=== PATIENT | female | born 1980 | race American Indian/Alaskan Native ===

== ENCOUNTER 2017-11-07 07:54 | Emergency (ER) | payer MEDICAID ==
[2017-11-07 08:06] VITALS: PULSE 81; RESP 18
--- NOTE | 2017-11-07 08:31 | ED PDOC ---
Arrival/HPI - General Historian: Patient - History of Present Illness Time/Duration: 4-6 hours Symptom Onset: Sudden Symptom Course: Worsening Severity Level: 8, Moderate <Alla Aggarwal - Last Filed: 11/07/17 10:10> <Andrea Alston - Last Filed: 11/07/17 11:49> - General Chief Complaint: Lower Extremity Problem/Injury Time Seen by Provider: 11/07/17 08:08 - History of Present Illness Narrative History of Present Illness (Text): 11/07/17 08:28 Patient is a 37 year old female with no past medical history who presents the emergency department s/p right ankle injury. She states that last night at approximately 11pm she fell on her stairs. She is unsure which way she landed on her foot. She is unable to bear weight. Pain scale in 8/10. Denies any numbness or tingling. (Alla Aggarwal) Past Medical History - Provider Review Nursing Documentation Reviewed: Yes - Past History Past History: No Previous - Past Medical History Past Medical History: No Previous - Cardiac Hx Cardiac Disorders: No - Pulmonary Hx Respiratory Disorders: No - Neurological Hx Neurological Disorder: No - HEENT Hx HEENT Disorder: No - Renal Hx Renal Disorder: No - Endocrine/Metabolic Hx Endocrine Disorders: No - Hematological/Oncological Hx Blood Disorders: No - Integumentary Hx Dermatological Disorder: No - Psychiatric Hx Substance Use: No <Alla Aggarwal - Last Filed: 11/07/17 10:10> Family/Social History - Physician Review Nursing Documentation Reviewed: Yes Family/Social History: Neoplasm/Cancer (Breast) Smoking Status: Light Smoker < 10 Cigarettes Daily Hx Alcohol Use: No Hx Substance Use: No Hx Substance Use Treatment: No <Alla Aggarwal - Last Filed: 11/07/17 10:10> Allergies/Home Meds <Alla Aggarwal - Last Filed: 11/07/17 10:10> <Andrea Alston - Last Filed: 11/07/17 11:49> Allergies/Adverse Reactions: Allergies No Known Allergies Allergy (Verified 11/07/17 08:05) Review of Systems - Physician Review All systems were reviewed & negative as marked: Yes - Review of Systems Constitutional: Normal. absent: Fatigue, Fevers Eyes: Normal ENT: Normal. absent: Hearing Changes Respiratory: Normal. absent: SOB, Cough Cardiovascular: Normal. absent: Chest Pain, Palpitations Gastrointestinal: Normal. absent: Abdominal Pain, Constipation, Diarrhea, Nausea, Vomiting Genitourinary Female: Normal. absent: Dysuria Musculoskeletal: Joint Swelling Skin: Normal. absent: Rash Neurological: Normal. absent: Headache, Dizziness <Alla Aggarwal - Last Filed: 11/07/17 10:10> Physical Exam Vital Signs Reviewed: Yes Temperature: Afebrile Blood Pressure: Normal Pulse: Regular Respiratory Rate: Normal Appearance: Positive for: Well-Appearing, Comfortable Pain Distress: Moderate Mental Status: Positive for: Alert and Oriented X 3 - Systems Exam Head: Present: Atraumatic, Normocephalic Pupils: Present: PERRL Extroacular Muscles: Present: EOMI Conjunctiva: Present: Normal Mouth: Present: Moist Mucous Membranes Neck: Present: Normal Range of Motion Respiratory/Chest: Present: Clear to Auscultation, Good Air Exchange. No: Respiratory Distress Cardiovascular: Present: Regular Rate and Rhythm Abdomen: Present: Normal Bowel Sounds Upper Extremity: Present: Normal Inspection Lower Extremity: Present: Edema, NORMAL PULSES, Tenderness, Temperature Abnormalties, Neurovascularly Intact, Other (Moderate amount of edema of the lateral side of right foot, tenderness of medial/lateral malleolus, decreased ROM due to pain). No: Normal Inspection, Normal ROM, Deformity Neurological: Present: CN II-XII Intact Skin: Present: Warm, Dry, Normal Color, Abrasion (right knee abrasion) Psychiatric: Present: Alert, Oriented x 3 <Alla Aggarwal - Last Filed: 11/07/17 10:10> <Andrea Alston - Last Filed: 11/07/17 11:49> Vital Signs Temp Pulse Resp BP Pulse Ox 11/07/17 10:32 98.0 F 81 18 120/64 97 11/07/17 08:03 98.3 F 81 18 118/58 L 96 Medical Decision Making - RAD Interpretation Sand Tester: ED Physician, Radiologist <Alla Aggarwal - Last Filed: 11/07/17 10:10> - RAD Interpretation Sand Tester: Radiologist <Andrea Alston - Last Filed: 11/07/17 11:49> ED Course and Treatment: 11/07/17 08:35 Patient is a 37 year old female with no significant past medical history who presents to the ED s/p ankle injury last night. Patient is unable to bear weight. Right foot and right ankle x rays ordered. Toradol 60mg IM for pain control. 11/07/17 10:05 X rays reviewed. Patient with 5th metatarsal fracture. Ortho shoe and crutches provided to the patient. Patient aware to call Dr Tavares's office tomorrow for an appointment. (Alla Aggarwal) 11/07/17 In agreement with resident note, which includes further HPI details. Patient was seen and evaluated with resident, came up with plan and treatment together. 37 year old F p/w foot/ankle pain, denies head injury. On exam, tenderness over lateral foot. XR positive for 5th met[address] fracture. Dr. Pike called, will see patient tomorrow in his office. (Andrea Alston) - RAD Interpretation Narrative RAD Interpretations (Text): 11/07/17 10:06 Foot x ray: 5th metatarsal fracture Knee x ray: unremarkable Ankle x ray: unremarkable (Alla Aggarwal) Radiology Orders: 11/07/17 08:26 ANKLE RIGHT 3 VIEWS ROUTINE [RAD] Stat FOOT RIGHT 3 VIEWS ROUTINE [RAD] Stat 11/07/17 08:41 KNEE W PATELLA RIGHT 3 VIEW [RAD] Stat - Medication Orders Current Medication Orders: Discontinued Medications Ketorolac Tromethamine (Toradol) 60 mg IM STAT STA Stop: 11/07/17 08:29 Last Admin: 11/07/17 08:39 Dose: 60 mg MAR Pain Assessment Document 11/07/17 08:39 [email or web address] (Rec: 11/07/17 08:40 [id number]) Pain Reassessment Is this a pain reassessment? No Sleep Is patient sleeping during reassessment? No Presence of Pain Presence of Pain Yes Pain Scale Used Pain Scale Used Numeric Location Left, Right or Bilateral Right Pain Location Body Site Knee Foot Description Description Constant Intensity of Pain at present 7 Pain Behavior Facial Grimacing Aggravating Factors Changing Position Alleviating Factors/Management Medication Techniques Alleviating Factors Medication IM Administration Charges Document 11/07/17 08:39 [email or web address] (Rec: 11/07/17 08:40 [id number]) Injection Site MAR Injection Site Right Gluteus Mc Charges for Administration # of IM Administrations 1 <Alla Aggarwal - Last Filed: 11/07/17 10:10> - PA / SEAM STEAMER / Resident Statement / has reviewed & agrees with the documentation as recorded. MD/ has examined the patient and agrees with the treatment plan. - Scribe Statement The provider has reviewed the documentation as recorded by the Scribe <Andrea Alston - Last Filed: 11/07/17 11:49> - Scribe Statement Jaimie Wright Provider Scribe Attestation: All medical record entries made by the Scribe were at my direction and personally dictated by me. I have reviewed the chart and agree that the record accurately reflects my personal performance of the history, physical exam, medical decision making, and the department course for this patient. I have also personally directed, reviewed, and agree with the discharge instructions and disposition. (Andrea Alston) Disposition/Present on Arrival - Present on Arrival Any Indicators Present on Arrival: No History of DVT/PE: No History of Uncontrolled Diabetes: No Urinary Catheter: No History of Decub. Ulcer: No History Surgical Site Infection Following: None - Disposition Have Diagnosis and Disposition been Completed?: Yes Disposition Time: 09:58 Patient Plan: Discharge <Alla Aggarwal - Last Filed: 11/07/17 10:10> <Andrea Alston - Last Filed: 11/07/17 11:49> - Disposition Diagnosis: Fracture of 5th metatarsal Disposition: HOME/ ROUTINE Condition: GOOD Additional Instructions: Take pain medications as needed Ice and elevate your foot Please wear ortho shoe, bear weight as tolerated Call Dr Dougherty's office for appointment tomorrow Prescriptions: Ibuprofen [Motrin] 600 mg PO Q8H PRN #20 tab PRN Reason: Pain, Moderate (4-7) oxyCODONE/Acetaminophen [Percocet 5/325 mg Tab] 1 tab PO Q6 #10 tab Referrals: Neo Tavares DO [Staff Provider] - Follow up with primary Forms: [facility] (Turkish), WORK NOTE
[2017-11-07 10:33] VITALS: BP 120/64; TEMP 98; O2SAT 97
--- NOTE | 2017-11-07 10:52 | RAD ---
Date of service: 11/07/2017 PROCEDURE: Right Ankle Radiographs. HISTORY: s/p fall COMPARISON: None FINDINGS: BONES: Transverse fracture base of right 5th metatarsal. JOINTS: Normal. No osteoarthritis. Ankle mortise maintained. Talar dome intact SOFT TISSUES: Normal. OTHER FINDINGS: None. IMPRESSION: Acute 5th metatarsal fracture.
--- NOTE | 2017-11-07 10:54 | RAD ---
Date of service: 11/07/2017 PROCEDURE: Right Knee Radiographs. HISTORY: s/p fall COMPARISON: None. FINDINGS: BONES: Normal. No fracture. JOINTS: Normal. No osteoarthritis. JOINT EFFUSION: None. OTHER FINDINGS: None. IMPRESSION: Normal radiographs of the right knee.
--- NOTE | 2017-11-07 10:55 | RAD ---
Date of service: 11/07/2017 PROCEDURE: Right Foot Radiographs. HISTORY: s/p fall COMPARISON: None. FINDINGS: BONES: Acute transverse fracture base of right 5th metatarsal. JOINTS: Normal. SOFT TISSUES: Normal. OTHER FINDINGS: None. IMPRESSION: 5th metatarsal fracture/acute. Concordant results with the preliminary interpretation rendered by the emergency department physician procedure.
== END 2017-11-07 10:33 | disposition home or self-care (01) ==
LOC: ED 07:54
DX: S92.351A Displaced fracture of fifth metatarsal bone, right foot, initial encounter for closed fracture (principal); W10.9XXA Fall (on) (from) unspecified stairs and steps, initial encounter; Y92.009 Unspecified place in unspecified non-institutional (private) residence as the place of occurrence of the external cause
CPT/HCPCS: 73562; 73610; 73630; 96372; 99283; J1885